=== PATIENT | male | born 2005 | race Two or more races ===

== ENCOUNTER 2025-06-11 17:30 | Emergency (ER) | payer SELFPAY ==
[2025-06-11 17:42] VITALS: BP 142/60; PULSE 120; RESP 20; TEMP 37.1; O2SAT 97; BMI 17.7
[2025-06-11 18:49] LABS: IDNOW Serial# 08D9AD1C; Influenza B2 Negative (Negative)
[2025-06-11 18:50] LABS: COVID-19 Test Negative (Negative); IDNOW Serial# 55D5AD1C; IDNOW Serial# 58CA691E; Strep A Nucleic Acid Negative (Negative)
--- NOTE | 2025-06-11 19:47 | ED.GENADULT ---
HPI - General Adult General Chief complaint: Upper Respiratory Symptoms Stated complaint: sore throat Time Seen by Provider: 06/11/25 19:46 Source: patient, RN notes reviewed and old records reviewed Mode of arrival: ambulatory Limitations: no limitations History of Present Illness ED Provider: Chay AGUILAR narrative: Patient is a 19year old male presenting to the ED with complaint of sore throat for the past 2 to 3 days as well as subjective fever. Reports increased pain with swallowing. Denies any known sick contacts. Denies any URI symptoms. MD complaint: sore throat Onset (ago): day(s) Related Data Previous Rx's ?Medication ?Instructions ?Recorded amoxicillin 500 mg tablet 500 mg PO BID #20 tabs 06/11/25 Allergies Allergy/AdvReac Type Severity Reaction Status Date / Time No Known Allergies Allergy Verified 06/11/25 17:43 Review of Systems Review of Systems: as per hpi Yes all other systems are reviewed and are negative Constitutional: Constitutional: Reports as per HPI Physical Exam ED Vital Signs: Vital Signs - 24 hr 06/11/25 17:42 Temperature 98.7 F Pulse Rate 120 H Respiratory Rate 20 Blood Pressure 142/60 H Pulse Oximetry 97 Oxygen Delivery Method Room Air BMI result Body Mass Index 17.7 Vital signs have been reviewed and appear to be correct. Blood pressure normal. Heart rate mildly tachycardic. Respiratory rate normal. Temperature normal. Oxygen saturation normal. Const General: cooperative, healthy appearing and no acute distress Orientation/consciousness: oriented to person, oriented to place, oriented to time and patient oriented x3 Limitations: no limitations HENMT Head: Yes normocephalic and Yes atraumatic Ears: external ears normal General nose exam: Normal external nose present Face and sinus: Yes face symmetric Mouth: Normal oral and palatal mucosa present, lip normal, tongue normal, oropharynx normal, moist mucous membranes, no audible dysphonia, no drooling and no trismus Throat: Yes uvula midline, Yes abnormal tonsil (3+ bilat, erythematous with bilat exudate), No peritonsillar mass and No uvular edema Eyes Pupils: Equal, round and reactive pupils present Neck Neck: Yes normal visual inspection, Yes no lymphadenopathy and Yes supple Resp Effort & Inspection: normal respiratory effort and able to speak in complete sentences Auscultation: clear to auscultation bilaterally Cardio Rate: regular rate Rhythm: regular rhythm Heart sounds: S1 normal heart sound present and S2 normal heart sound present GI Palpation (GI): Soft to palpation and nontender Auscultation: normoactive bowel sounds General: Yes no CVA tenderness Back/Spine/Pelvis Back: no CVA tenderness Skin General skin exam: elasticity normal and turgor normal Neuro General: oriented to person, oriented to place, oriented to time, patient oriented x3, moves all extremities, no focal motor deficits and CN's II-XI intact bilaterally Cranial nerves: Yes Equal, round and reactive pupils present Cognition (Neuro): normal cognition Extrem General: Yes full ROM, Yes no pedal edema and Yes no calf tenderness Psych Mental Status: mental status grossly normal Affect: normal affect Thought process: Normal thought process present Medical Decision Making Medical Decision Making [facility] Narrative: Patient is a 19year old male presenting to the ED with complaint of sore throat for the past 2 to 3 days as well as subjective fever. On exam patient is awake, A+Ox3, VS WNL, afebrile, normal neurological exam without focal deficits, physical exam findings as above. Given reported symptoms and physical exam findings, initial differential includes but is not limited to strep vs viral pharyngitis, tonsillitis, flu, Covid. 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 Given that patient has only been symptomatic for 2-3 days, testing for mono at this time could result in false negative. Discussed with patient that symptoms likely due to viral illness but given extent of inflammation of his tonsils, will treat for tonsillitis with amoxicillin. Advised treatment is supportive care including adequate rest, adequate fluids, Tylenol and ibuprofen, warm salt water gargles. Follow up with PCP as neeeded. Return precautions discussed. Patient verbalized understanding of and agreement with plan. Differential Diagnosis Differential Diagnoses: The differential diagnosis associated with the presentation includes as per [facility] Admission/Observation Consideration of admission/observation: Escalation of care including admission/observation considered Patient would have been admitted to the hospital and transferred to appropriate facility had their clinical presentation warranted hospital admission. Lab Data [facility] Lab Attestation statement: I reviewed the patient's lab results. as per [facility] Labs: Lab Results 06/11/25 Range/Units 18:22 COVID-19 (MARYLOU) Negative (Negative) COVID-19 Clin Com See Note Influenza Type A (ROSITA) Negative (Negative) Influenza Type B ([facility]) Negative (Negative) Influenza A & B Note See Note S. pyogenes GrpA [facility] Negative (Negative) External Record Review External record reviewed: Inpatient record, Office record and Outpatient record Prescription Management I considered prescription management with: Antibiotic Discharge Plan Discharge Clinical Impression: Acute tonsillitis Qualifiers: Pharyngitis/tonsillitis etiology: unspecified etiology Qualified Code(s): J03.90 - Acute tonsillitis, unspecified Patient Disposition: Home, Self-Care Instructions: Pharyngitis (ED), Tonsillitis (ED) Additional Instructions: You were evaluated in the emergency department today for a sore throat. Your COVID, flu, and strep swabs were all negative. You are being treated with a course of antibiotics for tonsillitis. Complete the full course as prescribed even if your symptoms improve. After he has been on antibiotics for 24 hours, you should switch out to a new toothbrush. It is possible that your symptoms are related to a viral infection which will resolve on its own with time and rest. If your symptoms persist beyond 7-10 days, you should be tested for mono which is a viral infection. Be sure to drink adequate fluids. You can use Tylenol and ibuprofen per package directions as needed for discomfort. You can also gargle with warm salt water several times daily. Follow-up with your primary care provider this week. Return to the emergency department if you develop difficulty swallowing, worsening pain, shortness of breath, are unable to swallow your saliva, or any other concerning symptoms. Prescriptions: New amoxicillin 500 mg tablet 500 mg PO BID Qty: 20 0RF Print Language: Macedonian
--- OUTSIDE RECORDS SUMMARY | 2025-06-11 19:55 | XMS_ITS | Encounter Summary ---
Author Organization [facility] Address [address] [place] [address] Phone Care Team Providers Care Inventory Clerk Name Role Phone Provider, Seun LUO Primary Care Provider [phone] Encounter Details Date Type Department Care Team (Late st Contact Info) Description 09/15/2016 Documentation [facility] Family Medicine [address] [place] [address] Family Medicine, Physician [address] [place], [place] [id number] Social History Tobacco Use Types Packs/Day Years Used Date Smoking Tobacco: Never Assessed Sex and Gender Information Value Date Recorded Sex Assigned at Male 04/19/2021 11:11 AM EDT Legal Sex Male 5:00 PM EDT Gender Identity Male 04/19/2021 11:11 AM EDT Sexual Orientation Straight 04/19/2021 11 :11 AM EDT documented as of this encounter Plan of Treatment Not on file documented as of this encounter Visit Diagnoses Not on filedocumented in this encounter Care Teams Inventory Clerk Relationship Specialty Start Date End Date Provider, MD Seun [address] [place] [address] PCP - General Pediatrics 03/08/24 07/16/24 documented as of this encounter
--- OUTSIDE RECORDS SUMMARY | 2025-06-11 19:55 | XMS_ITS | Encounter Summary ---
Author Organization [facility] Address [address] [place] [address] Phone Care Team Providers Care Neurophysiologist Name Role Phone Provider, Seun LUO Primary Care Provider [phone] Encounter Details Date Type Department Care Team (Late st Contact Info) Description 05/04/2012 Documentation [facility] Family Medicine [address] [place] [address] Family Medicine, Physician [address], [place] [phone] Social History Tobacco Use Types Packs/Day Years [...] on filedocumented in this encounter Care Teams Neurophysiologist Relationship Specialty Start Date End Date Provider, MD Seun [address] [place] [address] PCP - General Pediatrics 03/08/24 07/16/24 documented as of this encounter
--- OUTSIDE RECORDS SUMMARY | 2025-06-11 19:55 | XMS_ITS | Encounter Summary ---
Author Organization [facility] Address [address] [place] [address] Phone Care Team Providers Care Lead Clinical Research Coordinator Name Role Phone Provider, Seun LUO Primary Care Provider [phone] Encounter Details Date Type Department Care Team (Late st Contact Info) Description 05/17/2016 Documentation [facility] [address] [place] [address] Family Medicine, Physician [address], [place] [phone] Social History Tobacco Use Types Packs/Day Years [...] on filedocumented in this encounter Care Teams Lead Clinical Research Coordinator Relationship Specialty Start Date End Date Provider, MD [address] [place] [address] PCP - General Pediatrics 03/08/24 07/16/24 documented as of this encounter
--- OUTSIDE RECORDS SUMMARY | 2025-06-11 19:55 | XMS_ITS | Encounter Summary ---
Author Organization [facility] Address [address] [place] [address] Phone Care Team Providers Care Power Transformer Inspector Name Role Phone Provider, Seun LUO Primary Care Provider [phone] Encounter Details Date Type Department Care Team (Late st Contact Info) Description 05/27/2013 Documentation [facility] [address] [place] [address] Family Medicine, Physician [address], [place] [phone] Social History Tobacco Use Types Packs/Day Years [...] on filedocumented in this encounter Care Teams Power Transformer Inspector Relationship Specialty Start Date End Date Provider, MD Seun [address] [place] [address] PCP - General Pediatrics 03/08/24 07/16/24 documented as of this encounter
--- OUTSIDE RECORDS SUMMARY | 2025-06-11 19:55 | XMS_ITS | Encounter Summary ---
Author Organization [facility] Address [address] [place] [address] Phone Care Team Providers Care Policy Change Clerk Name Role Phone Provider, Seun LUO Primary Care Provider [phone] Encounter Details Date Type Department Care Team (Late st Contact Info) Description 05/04/2012 Documentation [facility] Family Medicine [address] [place] [address] Family Medicine, Physician [address] [phone] Social History Tobacco Use Types Packs/Day Years [...] on filedocumented in this encounter Care Teams Policy Change Clerk Relationship Specialty Start Date End Date Provider, MD Seun [address] [place] [address] PCP - General Pediatrics 03/08/24 07/16/24 documented as of this encounter
--- OUTSIDE RECORDS SUMMARY | 2025-06-11 19:55 | XMS_ITS | Encounter Summary ---
Author Organization [facility] Address [address] [place] [address] Phone Care Team Providers Care Assistant Professor Of Mathematics Name Role Phone Provider, Seun LUO Primary Care Provider [phone] Encounter Details Date Type Department Care Team (Late st Contact Info) Description 06/23/2014 Documentation [facility] [address] [place] [address] Family Medicine, Physician [address], [place] [phone] Social History Tobacco Use Types Packs/Day Years [...] on filedocumented in this encounter Care Teams Assistant Professor Of Mathematics Relationship Specialty Start Date End Date Provider, MD [address] [place] [address] PCP - General Pediatrics 03/08/24 07/16/24 documented as of this encounter
--- OUTSIDE RECORDS SUMMARY | 2025-06-11 19:55 | XMS_ITS | Encounter Summary ---
Author Organization [facility] Address [address] [place] [address] Phone Care Team Providers Care Cutter Machine Name Role Phone Provider, Seun LUO Primary Care Provider [phone] Encounter Details Date Type Department Care Team (Late st Contact Info) Description 05/04/2017 Conversion Encounter [facility] [address] [place] [address] Social History Tobacco Use Types Packs/Day Years [...] on filedocumented in this encounter Care Teams Cutter Machine Relationship Specialty Start Date End Date Provider, MD Seun [address] [place] [address] PCP - General Pediatrics 03/08/24 07/16/24 documented as of this encounter
--- OUTSIDE RECORDS SUMMARY | 2025-06-11 19:55 | XMS_ITS | Encounter Summary ---
Author Organization [facility] Address [address] [place] [address] Phone Care Team Providers Care City Planning Engineer Name Role Phone Provider, Seun LUO Primary Care Provider [phone] Encounter Details Date Type Department Care Team (Late st Contact Info) Description 06/23/2014 Documentation [facility] [address] [place] [address] Family Medicine, Physician [address], [place] [phone] Social History Tobacco Use Types Packs/Day Years [...] on filedocumented in this encounter Care Teams City Planning Engineer Relationship Specialty Start Date End Date Provider, MD [address]un [address] [place] [address] PCP - General Pediatrics 03/08/24 07/16/24 documented as of this encounter
--- OUTSIDE RECORDS SUMMARY | 2025-06-11 19:55 | XMS_ITS | Clinical Summary ---
Author Organization [facility] Address [address] [place] [phone] Phone Care Team Providers Care Tree Faller Name Role Phone Unavailable Primary Care Provider Unavailabl e Allergies No known active allergies Medications dexmethylphenida te (FOCALIN) 5 MG tablet Take by mouth. 01/11/2017 Active dexmethylphenida te XR (FOCALIN XR) 20 MG 24 hr capsule Take by mouth. 03/01/2016 Active Active Problems Problem Noted Date Diagnosed Date Attention deficit hyperactiv ity disorder (ADHD), combined type 02/20/2018 Overview (10/01/2019): Followed by Tata Crooks at [facility]. Adela[place] in therapist. Underweight 05/24/2013 Resolved Problems Problem Noted Date Diagnosed Date Resolved Date PTSD (post-traumatic stress disorder) 12/29/2009 02/20/2018 Immunizations Immunization Administration Dates Next Due DTaP 5 01/14/2008, 5,02/27/2004,12/29,2003 H1N1 12/01/2009,06/30/2009 HPV Vaccine 9 Valent 05/16/2017,09/14/2016 Hep A, ped/adol 05/16/2016,06/20/2014 Hep B, ped/adol 08/17/2004,02/27/2004,2003 Hib (HbOC) 11/26/2004, 4,2003,10/28 IPV 01/14/2008, 4,2003,10/28 Influenza, injectable, quadr ivalent, preservative free 09/15/2020,10/01/2019,05/16/2017,05/16,06/20/2014 Influenza, injectable, trivalent 06/05/2009,02/2006 MMR 01/14/2008,08/17/2004 Meningococcal Conj (Menactra) MCV4P 10/01/2019,0 05/16/2016 Pneumococcal Conjugate 11/26/2004,2003,2003,10/28 Tdap 05/16/2016 Varicella 01/14/2008,08/17/2004 Family History Medical History Relation Name Comments Asthma Father Tye Diabetes Father Tye Cancer Maternal Grandfather Cancer Maternal Grandmother Diabetes Maternal Grandmother Cancer Paternal Grandmother Relation Name Status Comments Brother Reece Alive Brother: Alive and well Father Tye Alive Father: Alive a nd well Maternal Grandfather Maternal Grandmother Alive Materna l grandmother: Asthma Mother micaela Alive Mother: Asthma Other No family histo ry of Seizure disorder, No family history of Elevated cholesterol, No family history of ADD/ADHD, No family history of Diabetes mellitus, No family history of Deafness, No family history of Strabismus/amblyopia, No family history of Obesity, No family history of Sudden /UT under age 55, No family history of Autism, No family history of Developmental dislocation of hip, No family history of Migraines Paternal Grandmother Social History Tobacco Use Types Packs/Day Years Used Date Smoking Tobacco: Never Hunger/Food Answer Date Recorded In the last 12 months, did y ou or your family ever eat less than you felt you should because there wasn't enough money for food? No 04/19/2021 Stable Housing Answer Date Recorded Are you worried that in the next 2 months you may not have stable housing? No 04/19/2021 Transportation Concerns Answer Date Rec orded In the last 12 months, have you or your family ever had to go without healthcare because you didn't have a way to get there? No 04/19/2021 Hazards in Home Answer Date Recorded Think about the place you li ve. Do you have problems with any of the following? Pests (mice or roaches), mold, no/not working smoke detectors, water leaks, no window guards. No 2020 Financing Utilities Answer Date Recorde d In the last 12 months, has t he electric, gas, oil, or water company threatened to shut off your services in your home? No 04/19/2021 Safety at Home Answer Date Recorded Are you or your family worried about feeling saf e in your home? No 04/19/2021 Outside Support Answer Date Recorded Do you feel that you need mo re support from other people or programs to help you care for yourself or your family? No 04/19/2021 Understanding Health Concerns Answer Da te Recorded Do you need help understandi ng your or your child's healthcare needs (diagnosis, medications, plan, etc.)? No 04/19/2021 Financing Health Concerns Answer Date R ecorded In the last 12 months, was t here a time when your child needed to see a doctor or get medications or supplies but could not because of cost? No 04/19/2021 Missing School or Work Answer Date Adilson rded Did you or your child miss s chool or work because of a health problem that could have been avoided? No 04/19/2021 Sex and Gender Information Value Date Recorded Sex Assigned at Male 04/19/2021 11:11 AM EDT Legal Sex Male 5:00 PM EDT Gender Identity Male 04/19/2021 11:11 AM EDT Sexual Orientation Straight 04/19/2021 11 :11 AM EDT Last Filed Vital Signs Vital Sign Reading Time Taken Comments Blood Pressure 109/66 04/19/2021 10:39 AM EDT Pulse 63 04/19/2021 10:39 AM EDT Temperature 35.6 C (96.1 F) 04/19/2021 10:39 AM EDT Respiratory Rate - - Oxygen Saturation - - Inhaled Oxygen Concentration - - Weight 48.7 kg (107 lb 6 oz) 04/19/2021 10:39 AM EDT Height 169.5 cm (5' 6.75 ) 04/19/2021 10:39 AM E DT Body Mass Index 16.94 04/19/2021 10:39 AM EDT Plan of Treatment Health Maintenance Due Date Last Done Comments Men B Vaccine (1 of 2 - Standard) 2019 Influenza Vaccines (#1) 2025 09/15/20 20, 10/01/2019, 05/16/2017, Additional history exists COVID-19 Vaccine (1 - 2023-2 5 season) 2025 DTaP,Tdap,and Td Vaccines (7 - Td or Tdap) 05/16/2026 05/16/2016, 01/14/2008, 03/18/2005, Additional history exists Hepatitis B Vaccines Completed 08/17/2004, 02/27/2004, 2003 HIB Vaccines Completed 11/26/2004, 02/16, 2003, Additional history exists Pneumococcal Vaccine Completed 11/26/2004, 08/17/2004, 2003, Additional history exists IPV Vaccines Completed 01/14/2008, 07/21, 2003, Additional history exists MMR Vaccines Completed 01/14/2008, 08/17/2004 Varicella Vaccines Completed 01/14/2008, 08/17/2004 Hepatitis A Vaccines Completed 05/16/2016, 06/20/20 14 HPV Vaccines Completed 05/16/2017, 09/14/2016 Meningococcal Vaccine Completed 10/01/2019, 016
--- OUTSIDE RECORDS SUMMARY | 2025-06-11 19:55 | XMS_ITS | Encounter Summary ---
Author Organization [facility] Address [address] [place] [address] Phone Care Team Providers Care Outcome Analyst Name Role Phone Provider, Seun LUO Primary Care Provider [phone] Encounter Details Date Type Department Care Team (Late st Contact Info) Description 05/17/2016 Documentation [facility] [address] [place] [address] Family Medicine, Physician [address], [place] [phone] Social History Tobacco Use Types Packs/Day Years [...] on filedocumented in this encounter Care Teams Outcome Analyst Relationship Specialty Start Date End Date Provider, MD Seun [address] [place] [address] PCP - General Pediatrics 03/08/24 07/16/24 documented as of this encounter
--- OUTSIDE RECORDS SUMMARY | 2025-06-11 19:55 | XMS_ITS | Encounter Summary ---
Author Organization [facility] Address [address] [place] [address] Phone Care Team Providers Care Casino Cage Cashier Name Role Phone Provider, Seun LUO Primary Care Provider [phone] Encounter Details Date Type Department Care Team (Late st Contact Info) Description 01/25/2010 Documentation [facility] [address] [place] [address] Family Medicine, Physician [address] [phone] Social History Tobacco Use Types Packs/Day Years [...] on filedocumented in this encounter Care Teams Casino Cage Cashier Relationship Specialty Start Date End Date Provider, MD Seun [address] [place] [address] PCP - General Pediatrics 03/08/24 07/16/24 documented as of this encounter
[2025-06-11 20:06] VITALS: BP 132/87; PULSE 107; RESP 18; TEMP 37; O2SAT 97
[2025-06-11 20:08] VITALS: BP 132/87; PULSE 107; RESP 18; TEMP 37; O2SAT 97
== END 2025-06-11 20:08 | disposition home or self-care (01) ==
PROVIDERS: Emergency Provider Emergency Medicine; PCP Pediatrics
DX: J03.90 Acute tonsillitis, unspecified (principal)
CPT/HCPCS: 87502; 87635; 87651; 99283; 99284